=== PATIENT | female | born 1980 | race Caucasian/White ===

== ENCOUNTER → 2016-12-07 | Outpatient (CLI) | payer BC ==
[~2016-12-07] MED LIST: ALBUAER2; CALCIUM; CHOL1TAB12 PO; CLEANSE; CO Q 10; DIAZ10TA PO; LEVO-105 PO; MAGNESIUM; MULT-506 PO; PROBIOTIC; [UNRECOGNIZED DRUG - OTHER]; [UNRECOGNIZED DRUG - OTHER] PO
[2016-12-07 17:14] LABS: BASO % 0.2 %; BASO ABS # 0.02 K/uL (0-0.2); COMPLETE YES; EOS % 0.9 %; HEMATOCRIT 42.2 % (37-47); IG% 0.1 %; LYMPH % 35.4 %; LYMPH ABS # 2.91 K/uL (1.2-3.4); MEAN CELL VOLUME 94.2 fL (80-100); MEAN CORPUSCULAR HEMOGLOBIN 31.9 pg (25-34); MEAN CORPUSCULAR HGB CONC 33.9 g/dl (32-36); MEAN PLATELET VOLUME 12.4 fL (7.4-10.4); MONO % 7.7 %; NEUT % 55.7 %; PLATELET COUNT 212 K/uL (130-400); RED BLOOD COUNT 4.48 M/uL (4.2-5.4); WHITE BLOOD COUNT 8.21 K/uL (4.8-10.8)
[2016-12-07 17:44] LABS: THYROID STIMULATING HORMONE 0.376 uIu/ml (0.300-4.500)
== END | disposition home or self-care (01) ==
LOC: C.LAB1850 16:21
PROVIDERS: ATTEND Internal Medicine
DX: Z86.2 Personal history of diseases of the blood and blood-forming organs and certain disorders involving the immune mechanism (principal); R53.83 Other fatigue

== ENCOUNTER → 2017-01-18 | Outpatient (CLI) | payer BC | END | disposition home or self-care (01) | LOC: C.LAB 09:44 | PROVIDERS: ATTEND Nutritionist | DX: R53.83 Other fatigue (principal) ==

== ENCOUNTER → 2017-06-15 | Outpatient (CLI) | payer BC ==
--- NOTE | 2017-06-15 07:21 | DIAGNOSTIC IMAGING REPORT ---
ADDENDUM Addendum: Comparison to July 2012 study. The inguinal lymph nodes in question appear smaller than on the prior July 2012 study. These nodes demonstrate no suspicious architectural features. Electronically signed by: Sravan Ackerman M.D. 06/15/2017 7:28 AM Dictated Date/Time: 06/15/2017 7:27 AM ORIGINAL REPORT RIGHT GROIN/UPPER THIGH ULTRASOUND CLINICAL HISTORY: T19.09 palpable right groin nodule COMPARISON STUDY: No previous studies for comparison. FINDINGS: There is small right groin lymph nodes which appear architecturally unremarkable. The largest measures 15 x 5 x 9 mm. IMPRESSION: Architecturally unremarkable right groin lymph nodes. Clinical follow-up is advocated. Electronically signed by: Sravan Ackerman M.D. 06/15/2017 7:19 AM Dictated Date/Time: 06/15/2017 7:18 AM
[2017-06-15 10:25] LABS: CHOLESTEROL/HDL RATIO 2.1
== END | disposition home or self-care (01) ==
LOC: C.ULTR 06:43
PROVIDERS: ATTEND Internal Medicine
DX: R19.09 Other intra-abdominal and pelvic swelling, mass and lump (principal); Z13.1 Encounter for screening for diabetes mellitus; R10.13 Epigastric pain; Z13.220 Encounter for screening for lipoid disorders

== ENCOUNTER → 2017-06-23 | Outpatient (CLI) | payer BC ==
--- NOTE | 2017-06-23 12:38 | DIAGNOSTIC IMAGING REPORT ---
ULTRASOUND ABDOMEN COMPLETE CLINICAL HISTORY: Epigastric abdominal pain. COMPARISON STUDY: Abdominal CT dated 06/04/2012. TECHNIQUE: Real-time, grayscale, and color flow sonography of the abdomen was performed. Images are reviewed in the transverse and longitudinal planes. FINDINGS: Liver: The liver is normal in size and echotexture. There is no intrahepatic biliary ductal dilatation. The main portal vein is patent. Gallbladder: The gallbladder is normal in appearance. No gallstones are identified. There is no gallbladder wall thickening or pericholecystic fluid. A sonographic Abernathy's sign is reportedly absent. The common bile duct measures up to 0.4 cm in diameter. Pancreas: Visualized portions of the pancreatic head and body are normal in appearance. Spleen: The spleen is normal in size and echotexture, measuring 11.3 cm in length. Kidneys: The kidneys are normal in size and echotexture. There is no hydronephrosis. The right kidney measures 11.4 cm in length and the left kidney measures 11.4 cm in length. No shadowing calculi are identified. Abdominal vasculature: Visualized portions of the abdominal aorta and IVC are normal as imaged. Ascites: None. IMPRESSION: Unremarkable sonographic assessment of the abdomen. Electronically signed by: Logan Zamarripa M.D. 06/23/2017 12:36 PM Dictated Date/Time: 06/23/2017 12:35 PM
== END | disposition home or self-care (01) ==
LOC: C.ULTR 11:56
PROVIDERS: ATTEND Internal Medicine Gastroenterology
DX: R10.13 Epigastric pain (principal)

== ENCOUNTER 2017-09-01 10:19 | Emergency (ER) | payer BC ==
[~2017-09-01] VITALS: Ht 170.2 cm; Wt 65.6 kg
[2017-09-01 10:24] VITALS: TEMP 36.7; Ht 170.2 cm; Wt 65.6 kg
[2017-09-01] MEDS ORDERED: BCPILLS PO (11:03)
[2017-09-01] MEDS ORDERED: SODIUM CHLORIDE 0.9% 1000ML 1,000 ML IV STA (11:08)
[2017-09-01 11:18] VITALS: O2SAT 98
[2017-09-01 11:29] LABS: BASO % 0.3 %; BASO ABS # 0.03 K/uL (0-0.2); EOS % 0.9 %; HEMATOCRIT 41.3 % (37-47); HEMOGLOBIN 14.5 g/dL (12.0-16.0); IG# 0.17 K/uL (0.00-0.02); LYMPH % 36.5 %; LYMPH ABS # 4.22 K/uL (1.2-3.4); MEAN CELL VOLUME 90.6 fL (80-100); MEAN CORPUSCULAR HEMOGLOBIN 31.8 pg (25-34); MEAN CORPUSCULAR HGB CONC 35.1 g/dl (32-36); MEAN PLATELET VOLUME 10.9 fL (7.4-10.4); MONO % 6.8 %; MONO ABS # 0.79 K/uL (0.11-0.59); NEUT ABS # 6.26 K/uL (1.4-6.5); PLATELET COUNT 281 K/uL (130-400); RED CELL DISTRIBUTION WIDTH CV 12.2 % (11.5-14.5); RED CELL DISTRIBUTION WIDTH SD 39.8 fL (36.4-46.3); WHITE BLOOD COUNT 11.57 K/uL (4.8-10.8)
[2017-09-01 11:50] LABS: ALBUMIN 3.6 gm/dl (3.4-5.0); CALCIUM 8.7 mg/dl (8.5-10.1); CREATININE 0.77 mg/dl (0.60-1.20); POTASSIUM 3.3 mmol/L (3.5-5.1)
[2017-09-01 11:52] LABS: TOTAL PROTEIN 6.6 gm/dl (6.4-8.2)
--- NOTE | 2017-09-01 12:20 | EMERGENCY ROOM VISIT NOTE ---
History First contact with patient: 10:26 Chief Complaint: ALLERGIC REACTION Stated Complaint: LARGE PUPILS A LITTLE LIGHT HEADED Nursing Triage Summary: She feels she may be having an allergic reaction to Clindamycin. She was being treated for pneumonia. She relates that today her eyes are dilated and face was flushed. She denies difficulty breathing. History of Present Illness The patient is a 36 year old female who presents to the Emergency Room with complaints of "large pupils, a little lightheaded". The patient states that she believes she is experiencing a reaction to clindamycin or prednisone. She states that since last night she has had dilated pupils, feeling flushed in her face, lightheaded, and a mild headache. She states that she does were contacts and notes that her vision was slightly off this morning. She notes that she had prednisone before, and also had a reaction to it but it caused her to perceive the floor as being at a severe angle. She notes that she has associated cough, sore throat, headache, and previous ringing in her ears. Review of Systems A complete 10-point Review of Systems was discussed with the patient, with pertinent positives and negatives listed in the History of Present Illness. All remaining Review of Systems questions can be considered negative unless otherwise specified. Past Medical/Surgical History Medical Problems: (1) DERANG LAT MENISCUS NEC Family History Cancer Heart disease Hypertension Social History Smoking Status: Never Smoker Occupation Status: employed Current/Historical Medications Scheduled Control Pills ( Control Pills), 1 TAB PO DAILY Physical Exam Vital Signs Date Time Temp Pulse Resp B/P (MAP) Pulse Ox O2 Delivery O2 Flow Rate FiO2 09/01/17 12:26 81 121/83 99 09/01/17 12:12 77 121/83 98 Room Air 09/01/17 11:24 67 09/01/17 11:19 67 21 125/85 98 Room Air 09/01/17 11:18 98 Room Air 09/01/17 10:24 36.7 77 18 134/94 99 Room Air 09/01/17 10:22 99 Room Air Physical Exam VITAL SIGNS - Vital signs and nursing notes were reviewed. Stable. GENERAL -36-year-old female appearing her stated age who is in no acute distress. Communicates well with provider and answers questions appropriately. SKIN - Without rashes. No petechial or meningeal rash. HEAD - NC/AT. EYES - PERRL with EOMI bilaterally. Sclera anicteric. EARS - No deformities of external structures noted on gross examination bilaterally. NOSE - Midline and without cyanosis. No epistaxis or purulent drainage noted. Septum midline without deviation or septal hematoma noted. MOUTH/OROPHARYNX - Without perioral cyanosis. Buccal mucosa pink and moist and without leukoplakia. Tongue midline with equal elevation of palate bilaterally. No tonsillar hypertrophy, erythema, or exudates noted. Fair dentition noted. NECK - Neck with FROM. No meningismus. LUNGS - Chest wall symmetric without accessory muscle use, intercostals retractions, or central cyanosis. Normal vesicular breath sounds CTA B/L. No wheezes, rales, or rhonchi appreciated. CARDIAC - RRR with S1/S2. No murmur, rubs, or gallops appreciated. EXTREMITIES - No clubbing or peripheral cyanosis. No pretibial edema present. +5 /5 strength noted in UE/LE bilaterally. NEUROLOGIC - Cranial nerves II through XII grossly intact. Sensory intact to light touch throughout. PSYCH - A&O, and cooperates fully with examiner. Pt is very pleasant and interacts well with examiner. Medical Decision & Procedures Laboratory Results 09/01/17 11:20 Red Blood Count 4.56, Mean Corpuscular Volume 90.6, Mean Corpuscular Hemoglobin 31.8, Mean Corpuscular Hemoglobin Concent 35.1, Mean Platelet Volume 10.9, Neutrophils (%) (Auto) 54.0, Lymphocytes (%) (Auto) 36.5, Monocytes (%) (Auto) 6.8, Eosinophils (%) (Auto) 0.9, Basophils (%) (Auto) 0.3, Neutrophils # (Auto) 6.26, Lymphocytes # (Auto) 4.22, Monocytes # (Auto) 0.79, Eosinophils # (Auto) 0.10, Basophils # (Auto) 0.03 09/01/17 11:20 Test 09/01/17 11:20 White Blood Count 11.57 K/uL (4.8-10.8) Red Blood Count 4.56 M/uL (4.2-5.4) Hemoglobin 14.5 g/dL (12.0-16.0) Hematocrit 41.3 % (37-47) Mean Corpuscular Volume 90.6 fL (80-100) Mean Corpuscular Hemoglobin 31.8 pg (25-34) Mean Corpuscular Hemoglobin Concent 35.1 g/dl (32-36) Platelet Count 281 K/uL (130-400) Mean Platelet Volume 10.9 fL (7.4-10.4) Neutrophils (%) (Auto) 54.0 % Lymphocytes (%) (Auto) 36.5 % Monocytes (%) (Auto) 6.8 % Eosinophils (%) (Auto) 0.9 % Basophils (%) (Auto) 0.3 % Neutrophils # (Auto) 6.26 K/uL (1.4-6.5) Lymphocytes # (Auto) 4.22 K/uL (1.2-3.4) Monocytes # (Auto) 0.79 K/uL (0.11-0.59) Eosinophils # (Auto) 0.10 K/uL (0-0.5) Basophils # (Auto) 0.03 K/uL (0-0.2) RDW Standard Deviation 39.8 fL (36.4-46.3) RDW Coefficient of Variation 12.2 % (11.5-14.5) Immature Granulocyte % (Auto) 1.5 % Immature Granulocyte # (Auto) 0.17 K/uL (0.00-0.02) Anion Gap 8.0 mmol/L (3-11) Est Creatinine Clear Calc Drug Dose 97.3 ml/min Estimated GFR () 114.3 Estimated GFR (Non- 98.6 BUN/Creatinine Ratio 16.3 (10-20) Calcium Level 8.7 mg/dl (8.5-10.1) Total Bilirubin 0.5 mg/dl (0.2-1) Aspartate Amino Transf (AST/SGOT) 16 U/L (15-37) Alanine Aminotransferase (ALT/SGPT) 38 U/L (12-78) Alkaline Phosphatase 41 U/L (45-117) Total Protein 6.6 gm/dl (6.4-8.2) Albumin 3.6 gm/dl (3.4-5.0) Globulin 3.0 gm/dl (2.5-4.0) Albumin/Globulin Ratio 1.2 (0.9-2) Medications Administered Medications (Trade) Dose Ordered Sig/Phillip Route Start Time Stop Time Status Last Admin Dose Admin Sodium Chloride 1,000 ml @ 999 mls/hr Q1H1M STAT IV 09/01/17 11:08 09/01/17 12:08 DC 09/01/17 11:08 999 MLS/HR Medical Decision Patient was seen and evaluated as above. She presents to us today with symptoms of large pupils, lightheadedness, and mild headache. She does have documented reactions to medications and in our system prednisone as a listed reaction of which she has had a reaction to in the past. I favor that her symptoms at this time are likely from prednisone. There is no evidence of anaphylaxis. She was referred here by local urgent care. She is nontoxic on exam. No evidence of CVA on exam. On my examination the pupils perhaps are slightly enlarged but certainly dilated appropriately. CBC revealed slight leukocytosis of 11.57 which I favor to be from the recent steroid use. No concerning anemia. Patient metabolic panel does reveal potassium of 3.3, however there is no concerning kidney or liver failure. Glucose high 109. She was monitored here today. She notes that the rash that she had on her face is already resolving that she described more like flushing. She is to follow with her family doctor or return if worsening. I again suspect this likely be a side effect of the prednisone and not less likely to clindamycin. She was educated upon management, educated upon worrisome symptoms in which to return, had questions answered prior to discharge, and was discharged home in good condition. Case was discussed with the attending physician. In evaluation treatment this patient the following differential diagnoses were obtained: CO, PE, CVA, medication reaction, among others. Impression Primary Impression: Medication reaction Departure Information Dispostion Home / Self-Care Condition GOOD Referrals RV. Mascorro MD (PCP) Patient Instructions My [facility] Additional Instructions You were seen in the emergency Department for what is likely a medication reaction. At this time your blood work does not show any emergent process. I do recommend discontinuing the prednisone and minimize them. Please call your family doctor to schedule follow-up. Please return with any new/concerning symptoms.
[2017-09-01 12:26] VITALS: BP 121/83; PULSE 81; O2SAT 99
== END 2017-09-01 12:27 | disposition home or self-care (01) ==
LOC: C.EDB 10:21 → C.EDC 12:27
DX: H57.04 Mydriasis (principal); R42 Dizziness and giddiness; R51 Headache; T38.0X5A Adverse effect of glucocorticoids and synthetic analogues, initial encounter; Z79.3 Long term (current) use of hormonal contraceptives; Z82.49 Family history of ischemic heart disease and other diseases of the circulatory system

== ENCOUNTER → 2017-09-16 | Outpatient (CLI) | payer BC ==
[~2017-09-16] MED LIST changes: -ALBUAER2; +BCPILLS PO; -CALCIUM; -CHOL1TAB12 PO; -CLEANSE; -CO Q 10; -DIAZ10TA PO; -LEVO-105 PO; -MAGNESIUM; -MULT-506 PO; -PROBIOTIC; -[UNRECOGNIZED DRUG - OTHER]; -[UNRECOGNIZED DRUG - OTHER] PO
== END | disposition home or self-care (01) ==
LOC: C.LABSPEC 17:38
PROVIDERS: ATTEND Physician Assistant
DX: R10.2 Pelvic and perineal pain (principal); Z11.3 Encounter for screening for infections with a predominantly sexual mode of transmission